=== PATIENT | female | born 1970 | race Asian ===

== ENCOUNTER 2018-05-17 08:57 | Emergency (ER) | payer MEDICAID ==
[2018-05-17] MEDS ORDERED: Lidocaine 2% Gel 5 mL TP ONE ×2 (09:07→09:11)
--- NOTE | 2018-05-17 10:19 | ED Physician Chart ---
ED Chief Complaint/HPI - Patient Information Date Seen:: 05/17/18 Time Seen:: 09:06 Chief Complaint:: left brow laceration History of Present Illness:: PATIENT DID NOT FALL AT ALL ACCORDING TO CAREGIVER. SHE RAN INTO THE EDGE OF A DOOR AND DEVELOPED A LEFT BROW LACERATION. NO LOSS OF CONSCIOUSNESS. Allergies:: Allergies Allergy/AdvReac Type Severity Reaction Status Date / Time No Known Allergies Allergy Verified 05/17/18 09:06 Vitals:: Vital Signs - 8 hr 05/17/18 09:06 Temp 97.8 F HR 73 RR 19 BP 125/53 O2 Sat % 96 Historian:: Other (caregiver) Review:: Nurse's Note Reviewed, Transfer documents Reviewed ED Review of Systems - Review of Systems General/Constitutional: No fever, No chills, No weight loss, No weakness, No diaphoresis, No edema, No loss of appetite Skin: Other (left brow laceration) Head: No headache, No light-headedness Eyes: No loss of vision, No pain, No diplopia ENT: No earache, No nasal drainage, No sore throat, No tinnitus Neck: No neck pain, No swelling, No thyromegaly, No stiffness, No mass noted Cardio Vascular: No chest pain, No palpitations, No PND, No orthopnea, No edema Pulmonary: No SOB, No cough, No sputum, No wheezing GI: No nausea, No vomiting, No diarrhea, No pain, No melena, No hematochezia, No constipation, No hematemesis G/U: No dysuria, No frequency, No hematuria Musculoskeletal: No bone or joint pain, No back pain, No muscle pain Endocrine: No polyuria, No polydipsia Psychiatric: No prior psych history, No depression, No anxiety, No suicidal ideation Hematopoietic: No bruising, No lymphadenopathy Allergic/Immuno: No urticaria, No angioedema Neurological: No syncope, No focal symptoms, No weakness, No paresthesia, No headache, No seizure, No dizziness, No confusion, No vertigo ED Past Medical History - Past Medical History Obtainable: No Past Medical History: Other (Down's syndrome; profound intellectual disabilities ) Family Medical History - Family Member Mother History Unknown: Yes ED Physical Exam - Physical Examination General/Constitutional: Awake, Well-developed, well-nourished, Alert, No distress, Non-toxic appearing, Ambulatory Other Gen/Cons comments:: slightly overweight. Other Head comments:: Left brow laceration which measures 1.5 inches in length. Other Skin comments:: Left brow laceration which measures 1.5 inches in length. ENMT: External ears, nose nl, TM canals nl Neck: Nontender, No nuchal rigidity, No stridor Respiratory: Nl effort/Exclusion, Clear to Auscultation, No Wheeze/Rhonchi/Rales Cardio Vascular: RRR, No murmur, gallop, rubs, NL S1 S2 Neuro/Psych: Normal sensory exam, Normal motor strength, Mood normal, No focal deficits Misc: Normal back, No paraspinal tenderness ED Assessment - Procedures Informed Consent: Procedure/risk/benefits explained by MD: No (implied. consent given by caregiver. patient has Down's syndrome.) Laceration Type:: Intermediate Wound Length: 3 cm Prep/Irrigation:: sterile betadine prep after removal of topical lidocaine and op site. 1% lidocaine with epinephrine injection of 4 cc (patient on cardiac exercise specialist) irrigation with 20 cc of sterile saline. Inspection: No dirt/debris, Bases & margins visual, NO FB Local Anesthetic:: 1% lidocaine with epinephrine Suture Type and #: Two 5-0 Vicryl deep, buried, interrupted sutures placed in dermis. Skin sutures: 4-0 Nylon x 4 placed. ED Septic Shock - . Is Septic Shock (SBP<90, OR Lactate>4 mmol\L) present?: No - <6hrs of presentation: Vital Signs: Vital Signs - 8 hr 05/17/18 09:06 Temp 97.8 F HR 73 RR 19 BP 125/53 O2 Sat % 96 ED Reassessment (Disposition) - Reassessment Reassessment Condition:: Improved - Diagnosis Diagnosis:: Left brow laceration - Aftercare/Follow up Instructions Aftercare/Follow-Up Instructions:: Refer to Discharge Instructions Notes:: suture removal in 5 days Medication Prescribed:: Keflex 500 mg po bid (liquid) x 3 days sterile saline op site or tegaderm to be placed on top of 2 x 2 gauze. - Patient Disposition Discharge/Transfer:: Home Condition at Disposition:: Stable, Improved
== END 2018-05-17 10:44 | disposition home or self-care (01) ==
LOC: ER 08:57
DX: S01.112A Laceration without foreign body of left eyelid and periocular area, initial encounter (principal); W22.03XA Walked into furniture, initial encounter; Y93.89 Activity, other specified; Y92.89 Other specified places as the place of occurrence of the external cause; Y99.8 Other external cause status
CPT/HCPCS: X6488; Z7502